=== PATIENT | female | born 1995 | race Hispanic/Latino ===

== ENCOUNTER 2020-12-01 14:27 | Emergency (ER) | payer OTHER ==
[~2020-12-01] VITALS: Ht 170.2 cm; Wt 117.9 kg
[2020-12-01] MEDS ORDERED: BIRTH CONTROL PO (14:38)
[2020-12-01] MEDS ORDERED: ONDANSETRON ODT4 MG PO (17:22)
== END 2020-12-01 17:38 | disposition home or self-care (01) ==
LOC: ED 14:27
DX: U07.1 COVID-19 (principal); J45.909 Unspecified asthma, uncomplicated
CPT/HCPCS: 80053; 85025; 96374; 96376; 99284-25; J2405; J7030; M0245

== ENCOUNTER 2022-11-26 00:13 | Inpatient (IN) | payer OTHER ==
[~2022-11-26] VITALS: Ht 170.2 cm; Wt 142.9 kg
--- OUTSIDE RECORDS SUMMARY | ~2022-11-26 | XMS | Continuity of Care Document ---
Demographics + + + | Address | [address] | | | [place] [address] | + + + | Preferred Language | Unknown | + + + | Marital Status | | + + + | Mu-Ism Affiliation | Unknown | + + + | Race | Unknown | + + + | Ethnic Group | Unknown | + + + Author + + + | Author | [facility] | + + + | Organization | [facility] | + + + | Address | [address] | | | [place] [address] | + + + | Phone | | + + + Care Team Providers + + + + | Care Guard Rail Installer Name | Role | Phone | + + + + Unavailable | Unavailable | + + + + Allergies and Intolerances + + + + + + | date | description | facility | reaction | severity | + + + + + + | (no date) | No Known | [facility] | (no reaction) | (no severity) | | | Allergies | | | | + + + + + + Encounters No information. Functional Status No information. Immunizations No information. Medications No information. Problems + + + + | date | description | facility | + + + + | 2022-04-21 15:38 | ENCOUNTER FOR | [facility] | | | SCREENING FOR UNCERTAIN | | | | DATES | | + + + + | 2022-04-21 15:38 | 9 WEEKS GESTATION OF | [facility] | | | | | + + + + | 2022-07-07 15:44 | ENCNTR FOR SUPRVSN OF | [facility] | | | NORMAL FIRST PREG, SECOND | | | | TRIMESTER | | + + + + | 2022-08-15 19:48 | DECREASED MOVEMENTS, | [facility] | | | UNSP TRIMESTER, UNSP | | + + + + | 2022-08-15 19:48 | WEEKS OF GESTATION OF | [facility] | | | NOT SPECIFIED | | + + + + | 2022-09-14 07:47 | UNSPECIFIED MATERNAL | [facility] | | | HYPERTENSION, THIRD | | | | TRIMESTER | | + + + + | 2022-09-14 07:47 | ENCOUNTER FOR SUPRVSN OF | [facility] | | | NORMAL PREGNANC | | + + + + | 2022-09-14 07:47 | 31 WEEKS GESTATION OF | [facility] | | | | | + + + + | 2022-11-18 12:48 | ENCNTR FOR SUPRVSN OF | [facility] | | | NORMAL PREG, UNSP, THIRD | | | | TRIMESTER | | + + + + | 2022-11-18 12:48 | 39 WEEKS GESTATION OF | [facility] | | | | | + + + + Procedures No information. Results/Labs No information. Social History No information. Vital Signs No information."
[~2022-11-26 00:13] MED LIST: BIRTH CONTROL PO; ONDANSETRON ODT4 MG PO
--- NOTE | 2022-11-26 12:59 | PR ---
[facility] [address] [facility] [place], [place] [address] Signed Progress Notes IP Datetime Report Generated by CPN: 11/26/2022 12:59 PROGRESS NOTES: [id number] Impression: Normal Progression of Labor; Reassuring Heart Rate Procedures: Artificial ROM; Sterile Vag Exam Plan: Continue Present Management VITAL SIGNS: [id number] Vital Signs: Reviewed; Within Normal Limits EXAM: [id number] Dilatation: 1.0 Effacement: 50 Station: -2 Contractions: off monitor currently MEMBRANES: [id number] Comments: Still comfortable but has made some change. Will continue. FETUS A: [id number] Presentation: Vertex Comments on Fetus A: previously reactive--not on monitor currently FETUS B: [id number] Signing Physician: Cassandra Bernstein MD Copies: ~ *Electronically Signed* 11/26/22 1259 CASSANDRA BERNSTEIN MD PATIENT NAME: MARTA TOBAR PROGRESS NOTE DATE OF : 96 PHYSICIAN: CASSANDRA BERNSTEIN MD RPT #: [id number] REPORT IS CONFIDENTIAL AND NOT TO BE RELEASED WITHOUT AUTHORIZATION
--- NOTE | 2022-11-26 17:31 | PR ---
[facility] [address] [facility] [place], [place] [address] Signed Progress Notes IP Datetime Report Generated by TAB: 11/26/2022 17:31 PROGRESS NOTES: [id number] Impression: Normal Progression of Labor; Reassuring Heart Rate Procedures: Intrauterine Pressure Catheter; Scalp Electrode Plan: Continue Present Management Other Plans: augment as needed VITAL SIGNS: [id number] Vital Signs: Reviewed; Within Normal Limits EXAM: [id number] Dilatation: 3.0 Effacement: 85 Station: -2 Contractions: off monitor currently MEMBRANES: [id number] Comments: Progressing. status reassuring at this time. Internal monitors placed and will determine if augmentation is needed. FETUS A: [id number] Presentation: Vertex Comments on Fetus A: previously reactive--not on monitor currently FETUS B: [id number] Signing Physician: Cassandra Bernstein MD Copies: ~ *Electronically Signed* 11/26/22 1731 CASSANDRA BERNSTEIN MD PATIENT NAME: MARTA TOBAR PROGRESS NOTE DATE OF : 96 PHYSICIAN: CASSANDRA BERNSTEIN MD RPT #: [id number] REPORT IS CONFIDENTIAL AND NOT TO BE RELEASED WITHOUT AUTHORIZATION
--- NOTE | 2022-11-26 20:43 | PR ---
[facility] [address] [place] [address] Signed Progress Notes IP Datetime Report Generated by TAB: 11/26/2022 20:43 PROGRESS NOTES: [id number] Impression: Normal Progression of Labor; Reassuring Heart Rate Procedures: Intrauterine Pressure Catheter; Scalp Electrode Plan: Continue Present Management Other Plans: add subQ terb xs 1 VITAL SIGNS: [id number] Vital Signs: Reviewed; Within Normal Limits EXAM: [id number] Dilatation: 3.5 Effacement: 90 Station: -2 Contractions: off monitor currently MEMBRANES: [id number] Comments: Slow progress and very dysfunctional pattern. I will try a single dose of subQ terb to see if this will help this pattern. If this is not successful, will do a trial of low dose pitocin. FETUS A: [id number] Presentation: Vertex Comments on Fetus A: previously reactive--not on monitor currently FETUS B: [id number] Signing Physician: Cassandra Bernstein MD Copies: ~ *Electronically Signed* 11/26/222042 CASSANDRA BERNSTEIN MD PATIENT NAME: MARTA TOBAR PROGRESS NOTE DATE OF : 96 PHYSICIAN: CASSANDRA BERNSTEIN MD RPT #: [id number] REPORT IS CONFIDENTIAL AND NOT TO BE RELEASED WITHOUT AUTHORIZATION
--- NOTE | 2022-11-26 21:49 | PR ---
[facility] [address] [facility] [place], [place] [address] Signed Progress Notes IP Datetime Report Generated by CPN: 11/26/2022 21:48 PROGRESS NOTES: [id number] Impression: Reassuring Heart Rate Procedures: Intrauterine Pressure Catheter; Scalp Electrode Plan: Augmentation Other Plans: add subQ terb xs 1 VITAL SIGNS: [id number] Vital Signs: Reviewed; Within Normal Limits EXAM: [id number] Dilatation: 3.5 Effacement: 90 Station: -2 Contractions: off monitor currently MEMBRANES: [id number] Comments: Labor pattern a little better as contractions are not too close. I would like her have contractions a little more often. I think pit augment is now needed. FETUS A: [id number] Presentation: Vertex Comments on Fetus A: previously reactive--not on monitor currently FETUS B: [id number] Signing Physician: Cassandra Bernstein MD Copies: ~ *Electronically Signed* 11/26/22 2148 CASSANDRA BERNSTEIN MD PATIENT NAME: MARTA TOBAR PROGRESS NOTE DATE OF : 96 PHYSICIAN: CASSANDRA BERNSTEIN MD RPT #: [id number] REPORT IS CONFIDENTIAL AND NOT TO BE RELEASED WITHOUT AUTHORIZATION
[2022-11-27 06:35] VITALS: BP 137/60
--- NOTE | 2022-11-27 11:05 | NUR ---
PT JUST EXITING SHOWER. DAD ON COUCH. BABY IN [place]. DAD PICKED UP BABY AND ALLOWED ME TO HOLD HER DURING MY VISIT. BOTH PARENTS INTERACTED LOVINGLY WITH BABY AND EXPRESSED AFSANEH AND ANTICIPATION OF DAYS TO COME. PRAYED.
--- NOTE | 2022-11-28 10:45 | PR ---
[facility] [address] [facility] [place], [place] [address] Signed PP Progress Notes Datetime Report Generated by CPNabil: 11/28/2022 10:45 SUBJECTIVE: [id number] Pain: Within Normal Limits Vital Signs: [id number] Vital Signs: Reviewed; Within Normal Limits EXAM: Ongoing Cardiovascular: Not Done Respiratory: Not Done Abdomen/Uterus: Abnormal Lochia: Normal Vulva/Perineum: Not Done Breasts: Not Done CVA Tenderness: Not Done Extremities: Normal Incision: Not Applicable Progress: Normal Exam Comments: Fundus firm, NT @ U-1. H/H 9.6/29.2, WBC 12.8, plat 237k IMPRESSION/PLAN/PROCEDURES: [id number] Impression: Normal Progression Plan: Discharge Procedures: None Progress Notes: Doing well. She desires discharge. Signing Physician: Cassandra Bernstein MD Copies: ~ *Electronically Signed* 11/28/22 1045 CASSANDRA BERNSTEIN MD PATIENT NAME: MARTA TOBAR PROGRESS NOTE DATE OF : 96 PHYSICIAN: CASSANDRA BERNSTEIN MD RPT #: [id number] REPORT IS CONFIDENTIAL AND NOT TO BE RELEASED WITHOUT AUTHORIZATION
== END 2022-11-28 11:10 | disposition home or self-care (01) | DRG 807 ==
LOC: FBC 00:13
PROVIDERS: ADMIT Obstetrics & Gynecology; ATTEND Obstetrics & Gynecology
PROC: 10E0XZZ Delivery of Products of Conception, External Approach (ICD-10-PCS; principal; 2022-11-26)
PROC: 4A1HXCZ Monitoring of Products of Conception, Cardiac Rate, External Approach (ICD-10-PCS; 2022-11-26)
PROC: 10907ZC Drainage of Amniotic Fluid, Therapeutic from Products of Conception, Via Natural or Artificial Opening (ICD-10-PCS; 2022-11-26)
PROC: 10H07YZ Insertion of Other Device into Products of Conception, Via Natural or Artificial Opening (ICD-10-PCS; 2022-11-26)
PROC: 0HQ9XZZ Repair Perineum Skin, External Approach (ICD-10-PCS; 2022-11-26)
PROC: 3E0R3BZ Introduction of Anesthetic Agent into Spinal Canal, Percutaneous Approach (ICD-10-PCS; 2022-11-26)
PROC: 00HU33Z Insertion of Infusion Device into Spinal Canal, Percutaneous Approach (ICD-10-PCS; 2022-11-26)
DX: O48.0 Post-term pregnancy (principal); Z37.0 Single live birth; O76 Abnormality in fetal heart rate and rhythm complicating labor and delivery; O70.0 First degree perineal laceration during delivery; O99.52 Diseases of the respiratory system complicating childbirth; J45.909 Unspecified asthma, uncomplicated; O62.2 Other uterine inertia; Z3A.40 40 weeks gestation of pregnancy; Z67.10 Type A blood, Rh positive
CPT/HCPCS: 01960; 36415; 85027; 86850; 86900; 86901; A9270; J1644; J2210; J2590; J3105